=== PATIENT | female | born 2000 | race Two or more races ===

== ENCOUNTER 2022-01-30 20:24 | Emergency (ER) | payer OTHER ==
[~2022-01-30] VITALS: Ht 170.2 cm; Wt 59.0 kg
[2022-01-31] MEDS ORDERED: INTESTINEX680 M1 PO (03:49)
[2022-01-31] MEDS ORDERED: LEVSIN/SL0.125 MG SL (03:49)
== END 2022-01-31 04:01 | disposition home or self-care (01) ==
LOC: ER 20:24 → EMR PED 20:24
DX: R10.31 Right lower quadrant pain (principal)